=== PATIENT | female | born 1985 | race Asian ===

== ENCOUNTER 2016-07-27 15:11 | Emergency (ER) | payer MEDICARE, MEDICAID ==
[2016-07-27 15:17] VITALS: BP 118/77; PULSE 89; RESP 16; O2SAT 98
--- NOTE | 2016-07-27 15:33 | ED.REPORT ---
HPI-General Illness Date of Service Jul 27, 2016 ED Provider: Nursing Notes Stated Complaint: BLOOD CHECK/ CHECK Chief Complaint: General Complaint Allergies: Coded Allergies: No Known Allergies (Unverified , 07/27/16) General Time Seen by MD: 15:33 Physical Exam Vital Signs Vital Signs Date Time Temp Pulse Resp B/P Pulse Ox O2 Delivery O2 Flow Rate FiO2 07/27/16 15:17 36.1 89 16 118/77 98 Room Air Kenisha Phipps MD Jul 27, 2016 15:33
[2016-07-28] MEDS ORDERED: DOXY-232 PO (01:45)
== END 2016-07-27 15:45 | disposition left against medical advice (07) ==
LOC: SED 15:11
DX: Z32.00 Encounter for pregnancy test, result unknown (principal)

== ENCOUNTER 2016-07-28 01:07 | Emergency (ER) | payer MEDICARE, MEDICAID ==
[~2016-07-28] VITALS: Ht 165.1 cm; Wt 82.3 kg
[2016-07-28 01:12] VITALS: BP 117/62; PULSE 74; RESP 16; O2SAT 99
--- NOTE | 2016-07-28 01:23 | ED.REPORT ---
HPI-General Illness Date of Service Jul 28, 2016 ED Provider: MD Duke This is a 31 year old female presenting to the emergency department seeking lab testing. Patient states, "I was in town and thought I'd get checked." She also states "It is cold outside." She expresses interest in check and mental health evaluation. However, she denies suicidal or homicidal ideation at this time. Denies fever, chills, nausea, vomiting, abdominal pain, bowel or bladder changes at this time. Nursing Notes Stated Complaint: BLOOD CK,DISEASE CK,PREG CHECK Chief Complaint: Female Abdominal Pain Nursing Notes Reviewed: Yes Allergies: Coded Allergies: No Known Allergies (Unverified , 07/27/16) Scheduled Doxycycline Monohyd (Doxycycline Monohyd) 100 Mg Tablet 100 MG PO BID General Time Seen by MD: 01:22 Chief Complaint Other Hx Obtained From: Patient Arrived By: Walk-in Sudden in Onset?: Yes Onset Occurred: Just prior to arrival Symptom Duration: Since onset Severity: Current: Mild Pertinent Negative: Pt denies other symptoms Recent Healthcare: No recent doctor visit, No recent hospitalization Similar Sx Previous: No Past Medical History Past Medical History Denies Ambulatory Status Independent Review of Systems Full Review of Systems Constitutional: Denies: Chills, Fever Respiratory: Denies: Non-productive cough, Shortness of breath Cardiovascular: Denies: Chest pain GI: Denies: Abdominal pain, Nausea, Vomiting Neurologic: Denies: Headache Psychiatric: Denies: Homicidal ideation, Suicidal ideation Complete sys rev & neg: except as marked. Physical Exam Vital Signs Vital Signs Date Time Temp Pulse Resp B/P Pulse Ox O2 Delivery O2 Flow Rate FiO2 07/28/16 01:12 36.7 74 16 117/62 99 Room Air Initial VS: Reviewed Head / Eyes: Atraumatic, Normocephalic, PERRL ENT: Mucous membranes moist, Conjunctiva normal, No scleral icterus Neck: Supple, Non-tender, Full range of motion Respiratory: Breath sounds normal, Clear to auscultation, No respiratory distress Cardiovascular: Regular rate & rhythm, Heart sounds normal, Intact distal pulses Extremities: Vascular intact, Neuro intact, No swelling, No tenderness Skin: Warm, Dry, No cyanosis Neurologic: Alert, Oriented, Nonfocal Psychiatric: Mood/affect normal, Behavior normal, Normal thought content General/Constitutional: Awake, Alert Interpretation & Diagnostics Lab Results Interpretation Test 07/28/16 01:30 Urine Color Yellow (YELLOW) Urine Appearance Cloudy (CLEAR,HAZY) Urine pH 6.0 (5.0-8.0) Urine Specific [place] 1.020 (1.003-1.035) Urine Protein Negativemg/dL (NEG,TRACE) Urine Glucose (UA) Negativemg/dL (NEGATIVE) Urine Ketones Negativemg/dL (NEGATIVE) Urine Occult Blood Small (NEGATIVE) Urine Nitrite Positive (NEGATIVE) Urine Bilirubin Negative (NEGATIVE) Urine Urobilinogen Normalmg/dL (NORMAL) Urine Leukocyte Esterase Large (NEGATIVE) Urine RBC 3-10/hpf (0-2) Urine WBC Packed/hpf (0-5) Urine Epithelial Cells Moderate/hpf (NONE-MOD) Urine Crystals None seen (NONE SEEN) Urine Bacteria Many/hpf (NONE-FEW) Urine Hyaline Casts None/lpf (NONE) Urine Granular Casts None seen (NONE SEEN) Urine Waxy Casts None seen (NONE SEEN) Urine Red Blood Cell Casts None seen (NONE SEEN) Urine White Blood Cell Casts None seen (NONE SEEN) Urine Mucus None seen (None Seen) Urine Trichomonas None seen (NONE SEEN) Urine Yeast None (NONE SEEN) Urine Culture Reflexed Indicated Re-Eval/Medical Decision Med Decision/Clinical Course 31-year-old female presents homeless, requesting check for for urinary tract infection. She does have evidence of urinary tract infection. GC chlamydia PCR is pending. We will treat her presumptively for chlamydia with doxycycline, and if her primary urinary tract infection. is negative. She desires social service consult around her homelessness. I will be available in the morning and she is discharged now in stable condition for follow-up in the morning when social worker aide available. Counseled Regarding: Diagnosis, Lab results, Need for follow-up, When/why to return to ED Discharge & Departure Primary Impression: Urinary tract infection Urinary tract infection type: acute cystitis Hematuria presence: with hematuria Qualified Code: N30.01 - Acute cystitis with hematuria Additional Impression: Homelessness Disposition: Home Discharge Condition All VS Reviewed: Yes Condition: Stable Additional Instructions: You do have a urinary tract infection. Begin Doxycycline twice daily for ten days. Your test is negative tonight. If you wish to talk with social worker aide, they will be here after 9:30 in the morning. Return here then. Scribe Attestation Portions of this note were transcribed by Dale Bynum. I, Dr. Wall personally performed the history, physical exam and medical decision-making; I reviewed and confirmed the accuracy of the information in the transcribed note. Signed by Shoaib Reyes, 07/27/2016 at 06:00. Berto Wall MD Jul 28, 2016 01:23 DALE BYNUM Jul 28, 2016 01:27
[2016-07-28] MEDS ORDERED: DOXY-232 PO (01:45)
[2016-07-28 01:59] LABS: APPEARANCE,URINE CLOUDY (CLEAR,HAZY); COLOR,URINE YELLOW (YELLOW); OCCULT BLOOD,URINE SMALL (NEGATIVE); UROBILINOGEN,URINE NORMAL (NORMAL)
== END 2016-07-28 03:10 | disposition home or self-care (01) ==
LOC: EDUNIT# 01:07 → SED 01:07
DX: N30.01 Acute cystitis with hematuria (principal); F17.210 Nicotine dependence, cigarettes, uncomplicated; Z59.0 Homelessness